=== PATIENT | male | born 1980 | race American Indian/Alaskan Native ===

== ENCOUNTER 2016-10-18 08:39 | Emergency (ER) | payer SELFPAY ==
[2016-10-18 08:53] VITALS: BP 151/97
[2016-10-18 09:33] LABS: Basophils % (Auto) 1.3 % (0.0-1.8); Eosinophils % (Auto) 2.7 % (0.0-4.3); Hematocrit 42.3 % (35.5-45.6); Mean Corpuscular HGB Conc 33 % (32-34); Mean Corpuscular Hemoglobin 27 pg (28-32); Mean Corpuscular Volume 80 fl (84-94); Platelet Count 237 K/mm3 (140-440); Red Blood Count 5.26 M/mm3 (3.65-5.03); Red Cell Distribution Width 14.7 % (13.2-15.2); White Blood Count 4.7 K/mm3 (4.5-11.0)
[2016-10-18 09:50] LABS: Anion Gap 17 mmol/L; BUN/Creatinine Ratio 17.14; Blood Urea Nitrogen 12 mg/dL (9-20); Calcium 9.1 mg/dL (8.4-10.2); Carbon Dioxide 28 mmol/L (22-30); Chloride 97.7 mmol/L (98-107); Glucose 174 mg/dL (75-100); Potassium 3.8 mmol/L (3.6-5.0); Sodium 139 mmol/L (137-145)
--- NOTE | 2016-10-20 19:37 | ED Elopement Review ---
ED Pt Elopement review - Results review Lab results: Laboratory Tests 10/18/16 10/18/16 09:08 09:08 WBC 4.7 RBC 5.26 H Hgb 14.0 Hct 42.3 MCV 80 L MCH 27 L MCHC 33 RDW 14.7 Plt Count 237 Lymph % (Auto) 39.1 H Wilson % (Auto) 10.3 H Eos % (Auto) 2.7 Baso % (Auto) 1.3 Lymph # 1.8 Wilson # 0.5 Eos # 0.1 Baso # 0.1 Seg Neutrophils % 46.6 Seg Neutrophils # 2.2 Sodium 139 Potassium 3.8 Chloride 97.7 L Carbon Dioxide 28 Anion Gap 17 BUN 12 Creatinine 0.7 L Estimated GFR > 60 BUN/Creatinine Ratio 17.14 Glucose 174 H Calcium 9.1 Troponin T < 0.010 - Call Back decision Pt Call Back Decision: No action required
== END 2016-10-18 12:51 | disposition left against medical advice (07) ==
LOC: ED 08:39
DX: R07.9 Chest pain, unspecified (principal); R10.13 Epigastric pain; E11.9 Type 2 diabetes mellitus without complications; I10 Essential (primary) hypertension
CPT/HCPCS: 36415; 80048; 84484; 85025; 93005; 93010

== ENCOUNTER 2016-10-31 00:07 | Emergency (ER) | payer SELFPAY ==
[2016-10-31 06:16] LABS: Anion Gap 17 mmol/L; Blood Urea Nitrogen 20 mg/dL (9-20); Calcium 9.3 mg/dL (8.4-10.2); Carbon Dioxide 29 mmol/L (22-30); Chloride 98.5 mmol/L (98-107); Glucose 134 mg/dL (75-100); Potassium 3.9 mmol/L (3.6-5.0); Sodium 141 mmol/L (137-145)
[2016-10-31 06:17] LABS: Bilirubin,Urine NEG (Negative); Blood,Urine NEG (Negative); Ketones,Urine NEG (Negative); Leukocyte Esterase,Urine NEG (Negative); Mucus,Urine FEW /HPF; Nitrite,Urine NEG (Negative); Protein,Urine <15 mg/dL mg/dL (Negative); RBC,Urine < 1.0 /HPF (0.0-6.0); Urobilinogen,Urine < 2.0 mg/dL (<2.0); WBC,Urine < 1.0 /HPF (0.0-6.0)
--- NOTE | 2016-10-31 07:18 | Emergency Department Report ---
ED General Adult HPI - General Chief complaint: Hyperglycemia Stated complaint: HYPERGLYCEMIA Time Seen by Provider: 10/31/16 07:03 Source: patient Mode of arrival: Ambulatory Limitations: No Limitations - History of Present Illness Initial comments: This is a 36-year-old male a/ox3 well-nourished with nontoxic or ill in appearance but presented to ED complaining of refill for his glipizide. Patient stated he doesn't have a primary care doctor due to insurance. Patient state last dose was last week. Yesterday morning he took his blood sugar which was roughly around 300. Patient stated upon yesterday morning he always had normal blood sugars roughly around 100-120. He stated he ate some carbs with a steak prior to taking his blood sugar which may cause it to elevate. Patient denies any polydipsia, diarrhea, thirst, headache, vital pain, nausea, vomiting , rash, swelling, ulcers, shortness of breath, chest pain, numbness, tingling, diaphoresis. Patient stated he takes glipizide 5 mg twice a day. He stated due to insurance he does not follow-up with a primary care doctor. Denies any allergies. Denies PMH. Complaint: Medication Refill -: Gradual, days(s) (2) Associated Symptoms: denies other symptoms. denies: confusion, chest pain, cough, diaphoresis, fever/chills, headaches, loss of appetite, malaise, nausea/ vomiting, rash, seizure, shortness of breath, syncope, weakness Treatments Prior to Arrival: none - Related Data Previous Rx's Medication Instructions Recorded Last Taken Type Lisinopril [Zestril TAB] 10 mg PO QDAY #30 tablet 02/13/16 Unknown Rx metFORMIN [Glucophage] 500 mg PO BID #60 tablet 02/13/16 Unknown Rx glipiZIDE [Glucotrol] 5 mg PO BID #60 tablet 10/31/16 Unknown Rx Allergies Allergy/AdvReac Type Severity Reaction Status Date / Time No Known Allergies Allergy Unverified 10/18/16 09:00 ED Review of Systems ROS: Stated complaint: HYPERGLYCEMIA Other details as noted in HPI Constitutional: denies: chills, fever Eyes: denies: eye pain, eye discharge, vision change ENT: denies: ear pain, throat pain Respiratory: denies: cough, shortness of breath, wheezing Cardiovascular: denies: chest pain, palpitations Endocrine: no symptoms reported Gastrointestinal: denies: abdominal pain, nausea, diarrhea Genitourinary: denies: urgency, dysuria Musculoskeletal: denies: back pain, joint swelling, arthralgia Skin: denies: rash, lesions Neurological: denies: headache, weakness, paresthesias Psychiatric: denies: anxiety, depression Hematological/Lymphatic: denies: easy bleeding, easy bruising ED Past Medical Hx - Past Medical History Previous Medical History?: Yes Hx Hypertension: Yes Hx Diabetes: Yes - Surgical History Past Surgical History?: No - Social History Smoking Status: Never Smoker Substance Use Type: None - Medications Home Medications: Home Medications Medication Instructions Recorded Confirmed Last Taken Type Lisinopril [Zestril TAB] 10 mg PO QDAY #30 tablet 02/13/16 Unknown Rx metFORMIN [Glucophage] 500 mg PO BID #60 tablet 02/13/16 Unknown Rx glipiZIDE [Glucotrol] 5 mg PO BID #60 tablet 10/31/16 Unknown Rx ED Physical Exam - General Limitations: No Limitations General appearance: alert, in no apparent distress - Head Head exam: Present: atraumatic, normocephalic, normal inspection - Eye Eye exam: Present: normal appearance, PERRL, EOMI. Absent: scleral icterus, conjunctival injection, nystagmus, periorbital swelling, periorbital tenderness Pupils: Present: normal accommodation - ENT ENT exam: Present: normal exam, normal orophraynx, mucous membranes moist, TM's normal bilaterally, normal external ear exam - Neck Neck exam: Present: normal inspection, full ROM. Absent: tenderness, meningismus, lymphadenopathy, thyromegaly - Respiratory Respiratory exam: Present: normal lung sounds bilaterally. Absent: respiratory distress, wheezes, rales, rhonchi, stridor, chest wall tenderness, accessory muscle use, decreased breath sounds, prolonged expiratory - Cardiovascular Cardiovascular Exam: Present: regular rate, normal rhythm, normal heart sounds. Absent: bradycardia, tachycardia, irregular rhythm, systolic murmur, diastolic murmur, rubs, gallop - GI/Abdominal GI/Abdominal exam: Present: soft, normal bowel sounds. Absent: distended, tenderness, guarding, rebound, rigid - Rectal Rectal exam: Present: deferred - Extremities Exam Extremities exam: Present: normal inspection, full ROM, normal capillary refill. Absent: tenderness, pedal edema, joint swelling, calf tenderness - Back Exam Back exam: Present: normal inspection, full ROM. Absent: tenderness, CVA tenderness (R), CVA tenderness (L), muscle spasm, paraspinal tenderness, vertebral tenderness, rash noted - Neurological Exam Neurological exam: Present: alert, oriented X3, CN II-XII intact, normal gait, reflexes normal - Expanded Neurological Exam Expanded Patient oriented to: Present: person, place, time Speech: Present: fluid speech Cranial nerves: EOM's Intact: Normal, Gag Reflex: Normal, Tongue Deviation: Normal, Nystagmus: Normal, Facial Sensation: Normal, Facial Palsy with Forehead Movement: Normal, Facial Palsy without Forehead Movement: Normal Cerebellar function: Finger to Nose: Normal, Heel to Almodovar: Normal, Romberg: Normal Upper motor neuron: Luis Miguel Neglect: Normal, Pronator Drift: Normal, Babinski Sign : Normal, Sensory Extinction: Normal Sensory exam: Upper Extremity Light Touch: Normal, Upper Extremity Pin Prick: Normal, Upper Extremity Temperature: Normal, UE 2 Point Discrimination: Normal, Lower Extremity Light Touch: Normal, Lower Extremity Pin Prick: Normal, Lower Extremity Temperature: Normal, LE 2 Point Discrimination: Normal Motor strength exam: RUE: 5, LUE: 5, RLE: 5, LLE: 5 DTR: bicep (R): 2+, bicep (L): 2+, tricep (R): 2+, tricep (L): 2+, knee (R): 2+ , knee (L): 2+, ankle (R): 2+, ankle (L): 2+ Best Eye Response (Ronaldo): (4) open spontaneously Best Motor Response (Ronaldo): (6) obeys commands Best Verbal Response (Ronaldo): (5) oriented [place] Total: 15 - Psychiatric Psychiatric exam: Present: normal affect, normal mood - Skin Skin exam: Present: warm, dry, intact, normal color. Absent: rash ED Course Vital Signs 10/31/16 00:20 Temperature 98.4 F Pulse Rate 94 H Respiratory 17 Rate Blood Pressure 147/91 O2 Sat by Pulse 98 Oximetry - Reevaluation(s) Reevaluation #1: 10/31/16 07:21 Patient is able to speak in full sentences with no signs of distress. ED Medical Decision Making - Lab Data Result diagrams: 10/31/16 05:30 - Medical Decision Making ED course; this is a 36-year-old male that presents with medication refill 1- patient was examined by myself. Patient showed his medication bottle which clearly states he takes glipizide 5 mg twice a day. I will refill his medication today for 1 month. 2- I stated to patient to have a strict follow-up with a primary care doctor that I will refer to the patient or if patient does not have insurance to follow up with a clinic that takes no insurance. I notified the patient importance of having a primary care doctor for A1c testing. Patient understands the plan of care at the time of discharge. He stated he'll follow up with a primary care doctor within 3-5 days. 3- at time time of discharge, the patient does not seem toxic or ill in appearance. No acute signs of distress noted. Patient agrees to discharge treatment plan of care. No further questions noted by the patient. 4- BMP, UA, and VBG pH obtained. There is no signs of DTA. No ketones present in urine. Normal VBG. Normal BMP with glucose slightly elevated at 135. Critical care attestation.: If time is entered above; I have spent that time in minutes in the direct care of this critically ill patient, excluding procedure time. ED Disposition Clinical Impression: Medication refill, Hyperglycemia Disposition: DC-01 TO HOME OR SELFCARE Is pt being admited?: No Does the pt Need Aspirin: No Condition: Stable Instructions: Diabetic Hyperglycemia (ED), Glipizide (By mouth) Additional Instructions: As discussed with you, it is important that you follow-up with a primary care doctor in 3-5 days and have a continues medical provider follow you. It is critical that your A1C exams are obtained during the medical treatment. If you have symptoms of abdominal pain, nausea, vomiting, dizziness, altered mental status, chest pain, shortness or breathe, fever, chills, numbness, tingling, diarrhea, or other symptoms return to the emergency department as soon as possible, Prescriptions: glipiZIDE [Glucotrol] 5 mg PO BID #60 tablet Referrals: PRIMARY CAREMD [Primary Care Provider] - 3-5 Days JARON BRIDGES MD, PHD [Staff Physician] - 3-5 Days [facility] [Outside] - 3-5 Days [facility] [Outside] - 3-5 Days Forms: Work/School Release Form(ED)
[2016-10-31 08:05] VITALS: BP 140/88
== END 2016-10-31 08:03 | disposition home or self-care (01) ==
LOC: ED 00:07
DX: E11.65 Type 2 diabetes mellitus with hyperglycemia (principal); I10 Essential (primary) hypertension
CPT/HCPCS: 36415; 80048; 81001; 82805; 82962; 99283

== ENCOUNTER 2016-12-10 17:14 | Emergency (ER) | payer SELFPAY ==
--- NOTE | 2016-12-10 17:35 | Emergency Department Report ---
ED General Adult HPI - General Chief complaint: Recheck/Abnormal Lab/Rx Stated complaint: ELEVATED BLOOD SUGAR Time Seen by Provider: 12/10/16 17:21 Source: patient Mode of arrival: Ambulatory Limitations: No Limitations - History of Present Illness Initial comments: PT states he ran out of his medication 2 weeks ago. PT states he was able to get a few pills refilled but he is out again. 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 Pt has empty RX bottle with him. He takes Glipizide bid. PT states he does not take Lisinopril. PT states when he takes it, he feels sob. PT aware he will need to follow up with PCP for [employer] worker management of htn and DM MD Complaint: medication refill -: Gradual, days(s) Severity scale (0 -10): 0 Associated Symptoms: denies: chest pain, nausea/vomiting, shortness of breath, syncope Treatments Prior to Arrival: none - Related Data Previous Rx's Medication Instructions Recorded Last Taken Type Hydrochlorothiazide [HCTZ] 12.5 mg PO QDAY #30 capsule 12/10/16 Unknown Rx glipiZIDE [Glucotrol] 5 mg PO BID #60 tablet 12/10/16 Unknown Rx Allergies Allergy/AdvReac Type Severity Reaction Status Date / Time No Known Allergies Allergy Unverified 10/18/16 09:00 ED Review of Systems ROS: Stated complaint: ELEVATED BLOOD SUGAR Other details as noted in HPI Comment: All other systems reviewed and negative Constitutional: denies: fever, malaise Respiratory: denies: shortness of breath, SOB with exertion, SOB at rest Cardiovascular: denies: chest pain Gastrointestinal: other (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 denies: abdominal pain, nausea, vomiting ED Past Medical Hx - Past Medical History Hx Hypertension: Yes Hx Diabetes: Yes - Surgical History Past Surgical History?: No - Social History Smoking Status: Never Smoker Substance Use Type: None - Medications Home Medications: Home Medications Medication Instructions Recorded Confirmed Last Taken Type Hydrochlorothiazide [HCTZ] 12.5 mg PO QDAY #30 capsule 12/10/16 Unknown Rx glipiZIDE [Glucotrol] 5 mg PO BID #60 tablet 12/10/16 Unknown Rx ED Physical Exam - General Limitations: No Limitations General appearance: alert, in no apparent distress - Head Head exam: Present: atraumatic, normocephalic, normal inspection - Eye Eye exam: Present: normal appearance, PERRL. Absent: conjunctival injection - ENT ENT exam: Present: normal exam, mucous membranes moist, normal external ear exam - Neck Neck exam: Present: normal inspection, full ROM. Absent: tenderness, meningismus, lymphadenopathy - Respiratory Respiratory exam: Present: normal lung sounds bilaterally. Absent: respiratory distress, chest wall tenderness - Cardiovascular Cardiovascular Exam: Present: normal rhythm, tachycardia (mild ) - Extremities Exam Extremities exam: Present: normal inspection, full ROM - Back Exam Back exam: Present: normal inspection, full ROM. Absent: tenderness, CVA tenderness (R), CVA tenderness (L) - Neurological Exam Neurological exam: Present: alert, oriented X3 - Psychiatric Psychiatric exam: Present: normal affect, normal mood - Skin Skin exam: Present: warm, dry, intact, normal color ED Course Vital Signs 12/10/16 12/10/16 17:21 17:38 Temperature 98.7 F Pulse Rate 106 H 98 H Respiratory 20 Rate O2 Sat by Pulse 98 98 Oximetry - Reevaluation(s) Reevaluation #1: 12/10/16 17:36 PT aware of his bg. PT advised to follow an ADA diet. PT aware he will get refill of his medication. PT aware he will need to follow up with PCP for management htn and dm - Pulse Oximetry Interpretation Digit-Finger Initial Pulse Oximetry Readin Actions Taken: none ED Medical Decision Making - Lab Data Lab Results 12/10/16 Range/Units 17:24 POC Glucose 196 H (70-105) - Differential Diagnosis non compliance, hyperglycemia Critical Care Time: No Critical care attestation.: If time is entered above; I have spent that time in minutes in the direct care of this critically ill patient, excluding procedure time. 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 Qualified Code(s ): E11.65 - Type 2 diabetes mellitus with hyperglycemia Disposition: DC-01 TO HOME OR SELFCARE Is pt being admited?: No Does the pt Need Aspirin: No Condition: Stable Instructions: Diabetes Mellitus Type 2 in Adults (ED), Hypertension (ED) Additional Instructions: Follow up with PCP in 3-5 days Have your bp rechecked on follow up Follow an ADA diet return to the ED if you have increased thirst, urination, headache or chest pain Prescriptions: glipiZIDE [Glucotrol] 5 mg PO BID #60 tablet Hydrochlorothiazide [HCTZ] 12.5 mg PO QDAY #30 capsule Referrals: [facility] [Outside] - 3-5 Days ADALID CONTI MD [Staff Physician] - 3-5 Days Time of Disposition: 17:40
== END 2016-12-10 17:55 | disposition home or self-care (01) ==
LOC: ED 17:14
DX: E11.65 Type 2 diabetes mellitus with hyperglycemia (principal)
CPT/HCPCS: 82962; 99282

== ENCOUNTER 2016-12-18 13:11 | Emergency (ER) | payer SELFPAY ==
--- NOTE | 2016-12-18 13:24 | Emergency Department Report ---
Chief Complaint: Chest Pain Stated Complaint: CHEST PAIN Time Seen by Provider: 12/18/16 13:20 - HPI History of Present Illness: PT c/o R sided chest pain that started today. PT states his chest pain feels sharp and like pressure - ROS Review of Systems: -n/v + chest pain - Exam Physical Exam: PT looks well, non toxic RRR gcs 15 MSE screening note: Focused history and physical exam performed. Due to findings the following was ordered: ekg, labs, xr ED Disposition for MSE Condition: Stable
[2016-12-18 13:25] VITALS: BP 151/101
--- NOTE | 2016-12-18 13:58 | XRay Report ---
ROUTINE CHEST, TWO VIEWS: HISTORY: chest pain. The trachea, heart, mediastinal contour, lung ford and bony thorax are unremarkable. IMPRESSION: Unremarkable chest x-ray.
[2016-12-18 14:17] LABS: Basophils % (Auto) 1.1 % (0.0-1.8); Eosinophils % (Auto) 3.4 % (0.0-4.3); Hematocrit 44.1 % (35.5-45.6); Hemoglobin 14.8 gm/dl (11.8-15.2); Mean Corpuscular HGB Conc 33 % (32-34); Mean Corpuscular Hemoglobin 26 pg (28-32); Mean Corpuscular Volume 78 fl (84-94); Platelet Count 242 K/mm3 (140-440); Red Blood Count 5.65 M/mm3 (3.65-5.03); Red Cell Distribution Width 13.5 % (13.2-15.2); White Blood Count 4.1 K/mm3 (4.5-11.0)
[2016-12-18 14:29] LABS: INR 0.94 (0.87-1.13); Partial Thromboplastin Time 26.3 Sec. (24.2-36.6)
[2016-12-18 14:31] LABS: Alanine Aminotransferase 17 units/L (7-56); Albumin/Globulin Ratio 1.1 %; Alkaline Phosphatase 75 units/L (35-129); Anion Gap 16 mmol/L; BUN/Creatinine Ratio 16.66; Blood Urea Nitrogen 10 mg/dL (9-20); Calcium 8.3 mg/dL (8.4-10.2); Carbon Dioxide 27 mmol/L (22-30); Chloride 97.8 mmol/L (98-107); Glucose 195 mg/dL (75-100); Lipase 78 units/L (13-60); Potassium 3.7 mmol/L (3.6-5.0); Sodium 137 mmol/L (137-145); Total Protein 7.7 g/dL (6.3-8.2)
--- NOTE | 2016-12-21 00:40 | ED Elopement Review ---
ED Pt Elopement review - Results review Lab results: Laboratory Tests 12/18/16 12/18/16 12/18/16 13:26 13:26 13:26 WBC 4.1 L RBC 5.65 H Hgb 14.8 Hct 44.1 MCV 78 L MCH 26 L MCHC 33 RDW 13.5 Plt Count 242 Lymph % (Auto) 41.8 H Crock[place] % (Auto) 10.2 H Eos % (Auto) 3.4 Baso % (Auto) 1.1 Lymph # 1.7 [place]ett # 0.4 Eos # 0.1 Baso # 0.0 Seg Neutrophils % 43.5 Seg Neutrophils # 1.8 PT 13.0 INR 0.94 APTT 26.3 Sodium 137 Potassium 3.7 Chloride 97.8 L Carbon Dioxide 27 Anion Gap 16 BUN 10 Creatinine 0.6 L Estimated GFR > 60 BUN/Creatinine Ratio 16.66 Glucose 195 H Calcium 8.3 L Total Bilirubin 0.40 AST 14 ALT 17 Alkaline Phosphatase 75 Troponin T < 0.010 Total Protein 7.7 Albumin 4.0 Albumin/Globulin Ratio 1.1 Lipase 78 H - Call Back decision Pt Call Back Decision: Call pt to return to ED GEORGE (chest pain may require inpatient evaluation. History of diabetes and hypertension)
== END 2016-12-18 19:50 | disposition left against medical advice (07) ==
LOC: ED 13:11
DX: R07.9 Chest pain, unspecified (principal); Z53.21 Procedure and treatment not carried out due to patient leaving prior to being seen by health care provider
CPT/HCPCS: 36415; 71020; 80053; 83690; 84484; 85025; 85610; 85730; 93005; 93010

== ENCOUNTER 2017-01-15 07:04 | Emergency (ER) | payer SELFPAY ==
[2017-01-15 07:54] LABS: Eosinophils % (Auto) 2.9 % (0.0-4.3); Hematocrit 43.9 % (35.5-45.6); Hemoglobin 14.9 gm/dl (11.8-15.2); Mean Corpuscular HGB Conc 34 % (32-34); Mean Corpuscular Hemoglobin 27 pg (28-32); Mean Corpuscular Volume 78 fl (84-94); Platelet Count 230 K/mm3 (140-440); White Blood Count 4.5 K/mm3 (4.5-11.0)
[2017-01-15 08:19] LABS: Anion Gap 15 mmol/L; BUN/Creatinine Ratio 17; Blood Urea Nitrogen 12 mg/dL (9-20); Carbon Dioxide 29 mmol/L (22-30); Chloride 98.7 mmol/L (98-107); Glucose 283 mg/dL (75-100); Sodium 139 mmol/L (137-145)
[2017-01-15] MEDS ORDERED: PEPCID PO ONE (14:48)
[2017-01-15] MEDS ORDERED: ALUM-MAG HYDROX-SIMETH 200-200-20MG/5ML PO ONE (14:48)
--- NOTE | 2017-01-15 14:51 | Emergency Department Report ---
ED Chest Pain HPI - General Chief Complaint: Chest Pain Stated Complaint: CP Time Seen by Provider: 01/15/17 14:26 Source: patient, RN notes reviewed, old records reviewed Mode of arrival: Ambulatory Limitations: No Limitations - History of Present Illness Initial Comments: This is a 36-year-old male. The patient is previously known to this provider. He does not have a primary care doctor. Past medical history of hypertension and diabetes. He presents to the ER with a complaint of chest pain. The chest pain is central. It started at 7:00 in the morning. It did not radiate to the back, arms or neck. There is no vomiting, shortness of breath or diaphoresis. The chest pain lasted for a few seconds. It has since resolved. There is no leg pain, there is no leg swelling, no recent trips greater than 4 hours, no recent hospital admissions, no recent aspirin use, no recent cocaine use. He incidentally request refill on his glipizide. MD Complaint: chest pain -: Gradual Onset: during rest Pain Location: left chest Pain Radiation: none Severity: mild Quality: aching Consistency: now resolved Improves With: nothing Worsens With: nothing re: denies: nausea, vomting, diaphoresis, dyspnea, sense of impending doom Other Symptoms: denies: cough, fever, syncope Treatments Prior to Arrival: none Aspirin use within the Past 7 Days: (0) No - Related Data On Oral Contraceptives: No Previous Rx's Medication Instructions Recorded Last Taken Type Aspirin [Aspirin BABY CHEW TAB] 81 mg PO QDAY #30 tab.chew 01/15/17 Unknown Rx Hydrochlorothiazide [HCTZ] 12.5 mg PO QDAY #30 capsule 01/15/17 Unknown Rx glipiZIDE [Glucotrol] 5 mg PO BID #60 tablet 01/15/17 Unknown Rx Allergies Allergy/AdvReac Type Severity Reaction Status Date / Time No Known Allergies Allergy Unverified 10/18/16 09:00 Heart Score - HEART Score History: Slightly suspicious EKG: Non-specific Age: < 45 Risk factors: 1-2 risk factors Troponin: < normal limit HEART Score: 2 - Critical Actions Critical Actions: 0-3 pts:0.9-1.7%risk of adverse cardiac event.Candidate for discharge ED Review of Systems ROS: Stated complaint: CP Other details as noted in HPI Constitutional: denies: fever Eyes: denies: vision change ENT: denies: epistaxis Respiratory: denies: cough Cardiovascular: chest pain Gastrointestinal: denies: abdominal pain Genitourinary: denies: dysuria Musculoskeletal: denies: back pain Skin: denies: lesions Neurological: denies: headache, weakness ED Past Medical Hx - Past Medical History Previous Medical History?: Yes Hx Hypertension: Yes Hx Diabetes: Yes - Social History Smoking Status: Never Smoker Substance Use Type: None - Medications Home Medications: Home Medications Medication Instructions Recorded Confirmed Last Taken Type Aspirin [Aspirin BABY CHEW TAB] 81 mg PO QDAY #30 tab.chew 01/15/17 Unknown Rx Hydrochlorothiazide [HCTZ] 12.5 mg PO QDAY #30 capsule 01/15/17 Unknown Rx glipiZIDE [Glucotrol] 5 mg PO BID #60 tablet 01/15/17 Unknown Rx ED Physical Exam - General Limitations: No Limitations General appearance: alert, in no apparent distress - Head Head exam: Present: atraumatic, normocephalic - Eye Eye exam: Present: normal appearance, EOMI. Absent: nystagmus - ENT ENT exam: Present: normal exam, normal orophraynx, mucous membranes moist, normal external ear exam - Neck Neck exam: Present: normal inspection, full ROM. Absent: tenderness, meningismus - Respiratory Respiratory exam: Present: normal lung sounds bilaterally. Absent: respiratory distress, wheezes, rales, rhonchi, stridor, chest wall tenderness, accessory muscle use, decreased breath sounds - Cardiovascular Cardiovascular Exam: Present: regular rate, normal rhythm, normal heart sounds. Absent: bradycardia, tachycardia, irregular rhythm, systolic murmur, diastolic murmur, rubs, gallop - GI/Abdominal GI/Abdominal exam: Present: soft, normal bowel sounds. Absent: distended, tenderness, guarding, rebound, rigid, pulsatile mass - Rectal Rectal exam: Present: deferred - Extremities Exam Extremities exam: Present: normal inspection, full ROM, normal capillary refill. Absent: tenderness, pedal edema, joint swelling, calf tenderness - Back Exam Back exam: Present: normal inspection, full ROM. Absent: tenderness, CVA tenderness (R), CVA tenderness (L), muscle spasm, paraspinal tenderness, vertebral tenderness - Neurological Exam Neurological exam: Present: alert, oriented X3, normal gait, other (Extraocular movements intact. Tongue midline. No facial droop. Facial sensation intact to light touch in the V1, V2, V3 distribution bilaterally. 5 and 5 strength in 4 extremities.. Sensation is intact to light touch in 4 extremities.). Absent : motor sensory deficit - Psychiatric Psychiatric exam: Present: normal affect, normal mood - Skin Skin exam: Present: warm, dry, intact, normal color. Absent: rash ED Course Vital Signs 01/15/17 01/15/17 01/15/17 07:23 13:27 14:10 Temperature 98 F 98.4 F Pulse Rate 91 H 70 Respiratory 20 16 16 Rate Blood Pressure 154/103 Blood Pressure 159/100 [Left] O2 Sat by Pulse 98 100 100 Oximetry 01/15/17 01/15/17 15:00 15:27 Temperature 98.7 F Pulse Rate 84 86 Respiratory 18 Rate Blood Pressure Blood Pressure 156/96 [Left] O2 Sat by Pulse 99 Oximetry - Reevaluation(s) Reevaluation #1: 01/15/17 15:41 Chest pain started at 7:00 in the morning. Troponins are negative 2. Troponin is drawn over 8 hour timeframe. INRMALA score - Nirmala Score Age > 65: (0) No Aspirin use within the Past 7 Days: (0) No 3 or more CAD Risk Factors: (0) No 2 or more Angina events in past 24 hrs: (0) No Known CAD with more than 50% Stenosis: (0) No Elevated Cardiac Markers: (0) No ST Deviation Greater than 0.5mm: (0) No NIRMALA Score: 0 ED Medical Decision Making - Lab Data Result diagrams: 01/15/17 07:40 01/15/17 07:40 Vital Signs 01/15/17 07:23 Temperature 98 F Pulse Rate 91 H Respiratory 20 Rate Blood Pressure 154/103 O2 Sat by Pulse 98 Oximetry Lab Results 01/15/17 01/15/17 01/15/17 Range/Units 07:40 07:40 10:27 WBC 4.5 (4.5-11.0) K/mm3 RBC 5.60 H (3.65-5.03) M/mm3 Hgb 14.9 (11.8-15.2) gm/dl Hct 43.9 (35.5-45.6) % MCV 78 L (84-94) fl MCH 27 L (28-32) pg MCHC 34 (32-34) % RDW 14.0 (13.2-15.2) % Plt Count 230 (140-440) K/mm3 Lymph % (Auto) 41.7 H (13.4-35.0) % Wilbarger % (Auto) 8.0 H (0.0-7.3) % Eos % (Auto) 2.9 (0.0-4.3) % Baso % (Auto) 2.0 H (0.0-1.8) % Lymph # 1.9 (1.2-5.4) K/mm3 Wilbarger # 0.4 (0.0-0.8) K/mm3 Eos # 0.1 (0.0-0.4) K/mm3 Baso # 0.1 (0.0-0.1) K/mm3 Seg Neutrophils % 45.4 (40.0-70.0) % Seg Neutrophils # 2.1 (1.8-7.7) K/mm3 Sodium 139 (137-145) mmol/L Potassium 4.0 (3.6-5.0) mmol/L Chloride 98.7 (98-107) mmol/L Carbon Dioxide 29 (22-30) mmol/L Anion Gap 15 mmol/L BUN 12 (9-20) mg/dL Creatinine 0.7 L (0.8-1.5) mg/dL Estimated GFR > 60 ml/min BUN/Creatinine Ratio 17 % Glucose 283 H (75-100) mg/dL Calcium 9.0 (8.4-10.2) mg/dL Troponin T < 0.010 < 0.010 (0.00-0.029) ng/mL - EKG Data -: EKG Interpreted by Ut EKG shows normal: sinus rhythm - EKG Data 01/15/17 15:37 EKG #1 demonstrates sinus, 89 bpm, normal axis, not morphologically consistent with STEMI, Q waves noted in the inferior leads. Appears grossly unchanged from prior EKG 12/18/2016. EKG #2 demonstrates sinus, 73 bpm, normal intervals, normal axis, not consistent with STEMI, persistent Q waves noted in inferior leads, appears unchanged when compared to prior. - Radiology Data Radiology results: image reviewed interpreted by me: X-ray of the chest is negative for acute disease - Medical Decision Making Differential diagnosis: GERD, gastritis, acute coronary syndrome, pneumonia Assessment and plan: 36-year-old male with atypical chest pain, troponin negative 2, EKG abnormal but unchanged 2, appears unchanged when compared to prior EKG, Q waves were present in lead 3 a prior EKG, and they are present today. Low risk by NIRMALA score, low risk by heart score, low risk by well's criteria, no pulmonary embolus or DVT risk factors, perc negative. Patient at low risk for major adverse cardiac events. He is pain-free at this time, and appears quite comfortable. Patient's medications were refilled, he will be started on low dose aspirin, and he will be referred to local outpatient cardiology to follow up for outpatient ACS risk stratification. Critical care attestation.: If time is entered above; I have spent that time in minutes in the direct care of this critically ill patient, excluding procedure time. ED Disposition Clinical Impression: Chest pain Disposition: DC-01 TO HOME OR SELFCARE Is pt being admited?: No Does the pt Need Aspirin: No Condition: Stable Instructions: Chest Pain (ED) Additional Instructions: Take the medications as directed. Follow up with a manager of human resources or primary care doctor within the next 3-5 days to schedule/syringe outpatient cardiac stress test/cardiac risk stratification evaluation. It is very important to follow-up as directed with any of the listed outpatient specialist. Alternatively, contact your private insurance company to arrange outpatient follow-up. Return to the ER right away with new pain, worsened pain, migration of pain, fevers, chills, lethargy, confusion, intractable vomiting, inability to tolerate liquid feeds, change in mental status, worsening pain. Prescriptions: Aspirin [Aspirin BABY CHEW TAB] 81 mg PO QDAY #30 tab.chew glipiZIDE [Glucotrol] 5 mg PO BID #60 tablet Hydrochlorothiazide [HCTZ] 12.5 mg PO QDAY #30 capsule Referrals: PRIMARY CARE, [Primary Care Provider] - 3-5 Days [facility] [Provider Group] - 3-5 Days [facility] [Provider Group] - 3-5 Days
[2017-01-15 15:41] VITALS: BP 156/96
--- NOTE | 2017-01-15 15:53 | XRay Report ---
ROUTINE CHEST, TWO VIEWS: History: Chest pain. PA and lateral views demonstrate the heart and mediastinal contour to be of normal size and shape. The lungs are clear and fully expanded and the soft tissues and bony structures are normal. IMPRESSION: Normal study.
== END 2017-01-15 15:41 | disposition home or self-care (01) ==
LOC: ED 07:04
DX: R07.9 Chest pain, unspecified (principal); I10 Essential (primary) hypertension; E11.9 Type 2 diabetes mellitus without complications; Z79.82 Long term (current) use of aspirin
CPT/HCPCS: 36415; 71020; 80048; 84484; 85025; 93005; 93010

== ENCOUNTER 2017-03-08 14:20 | Emergency (ER) | payer SELFPAY ==
[2017-03-08 14:30] VITALS: BP 176/120
== END 2017-03-08 17:00 | disposition left against medical advice (07) ==
LOC: ED 14:20
DX: E11.65 Type 2 diabetes mellitus with hyperglycemia (principal); I10 Essential (primary) hypertension; Z53.21 Procedure and treatment not carried out due to patient leaving prior to being seen by health care provider
CPT/HCPCS: 82962

== ENCOUNTER 2019-04-06 11:23 | Emergency (ER) | payer SELFPAY ==
--- NOTE | 2019-04-06 12:07 | Event Note ---
ED Screening Note Date of service: 04/06/19 Time: 12:04 ED Screening Note: c/o CP x thid morning denies SOB, hx of LA/CVA/DVT/PE States BG 400s at home This initial assessment/diagnostic orders/clinical plan/treatment(s) is/are subject to change based on patients health status, clinical progression and re- assessment by fellow clinical providers in the ED. Further treatment and workup at subsequent clinical providers discretion. Patient/guardian urged not to elope from the ED as their condition may be serious if not clinically assessed and managed. Initial orders include: labs CXR EKG
[2019-04-06 12:47] LABS: Basophils # (Auto) 0.1 K/mm3 (0.0-0.1); Basophils % (Auto) 1.1 % (0.0-1.8); Eosinophils # (Auto) 0.1 K/mm3 (0.0-0.4); Eosinophils % (Auto) 2.4 % (0.0-4.3); Hematocrit 43.9 % (35.5-45.6); Lymphocytes # (Auto) 1.4 K/mm3 (1.2-5.4); Mean Corpuscular HGB Conc 34 % (32-34); Mean Corpuscular Volume 80 fl (84-94); Monocytes # (Auto) 0.3 K/mm3 (0.0-0.8); Monocytes % (Auto) 7.3 % (0.0-7.3); Platelet Count 250 K/mm3 (140-440); Red Blood Count 5.48 M/mm3 (3.65-5.03); Red Cell Distribution Width 13.8 % (13.2-15.2)
[2019-04-06 12:56] LABS: BUN/Creatinine Ratio 13; Blood Urea Nitrogen 10 mg/dL (9-20); Calcium 9.2 mg/dL (8.4-10.2); Hemolysis Index 4
--- NOTE | 2019-04-06 13:17 | XRay Report ---
CHEST 1 VIEW 12:45 PM INDICATION / CLINICAL INFORMATION: Chest pain. COMPARISON: 01/15/2017. FINDINGS: SUPPORT DEVICES: None. HEART / MEDIASTINUM: The heart size and pulmonary vasculature are normal. The aorta is normal in mirlande mary. LUNGS / PLEURA: No significant pulmonary or pleural abnormality. No pneumothorax. ADDITIONAL FINDINGS: No significant additional findings. IMPRESSION: No acute abnormality or significant change. Signer Name: Elkin Gavin MD Signed: 04/06/2019 1:13 PM Workstation Name: [id number]
[2019-04-06] MEDS ORDERED: SODIUM CHLORIDE 0.9% 1000 ML 1,000 ML ONE (13:37)
[2019-04-06] MEDS ORDERED: SODIUM CHLORIDE 0.9% 1000 ML 1,000 ML IV ONE ×2 (13:50→14:15)
[2019-04-06] MEDS ORDERED: INSULIN REGULAR, HUMAN 100 UNITS/1 ML IV ONE (14:15)
--- NOTE | 2019-04-06 14:33 | Emergency Department Report ---
ED Dizziness HPI - General Chief Complaint: Chest Pain Stated Complaint: CHEST PAIN/HYPERGLYCEMIA Time Seen by Provider: 04/06/19 12:04 Source: patient Mode of arrival: Ambulatory Limitations: No Limitations - History of Present Illness Initial Comments: 38 year old male with pmhx of DM, HTN presents to ED c/o elevated BS. Patient states that this morning he felt a "little" lightheaded, and when he checked his blood sugar it was elevated above 300. He states at the time he mild sharp pain underneath his right breast but this has since resolved. He admits that he has been out of his glipizide since yesterday and he just needs a refill on his medication. He states he does not currently have a PCP. He denies any associated ZAMBRANO, vision changes, focal neurological deficits, nausea, vomiting, abdominal pain or UTI symptoms. Denies any fever or chills. Denies any history of DKA. Denies any history of CAD. Denies hx of DVT/PE and he has no risk factors for DVT/PE. MD Complaint: lightheadedness, other (Chest pain, now resolved) -: Gradual (Today) - Related Data Previous Rx's Medication Instructions Recorded Last Taken Type Aspirin [Aspirin BABY CHEW TAB] 81 mg PO QDAY #30 tab.chew 01/15/17 Unknown Rx amLODIPine 10 mg PO DAILY #30 tab 04/06/19 Unknown Rx glipiZIDE [Glucotrol] 5 mg PO BID #60 tablet 04/06/19 Unknown Rx Allergies Allergy/AdvReac Type Severity Reaction Status Date / Time No Known Allergies Allergy Unverified 10/18/16 09:00 ED Review of Systems ROS: Stated complaint: CHEST PAIN/HYPERGLYCEMIA Other details as noted in HPI Comment: All other systems reviewed and negative Respiratory: denies: cough, orthopnea, shortness of breath, SOB with exertion, SOB at rest, stridor Cardiovascular: chest pain (resolved). denies: palpitations, dyspnea on exertion, edema, syncope, paroxysmal nocturnal dyspnea Gastrointestinal: denies: abdominal pain, nausea, vomiting, diarrhea, constipation, hematemesis, hematochezia Genitourinary: denies: urgency, dysuria, frequency, hematuria, discharge, testicular pain, testicular mass, other Musculoskeletal: denies: arthralgia, myalgia Neurological: other (dizzy). denies: headache, weakness, numbness, paresthesias, confusion, abnormal gait, vertigo ED Past Medical Hx - Past Medical History Previous Medical History?: Yes Hx Hypertension: Yes Hx Diabetes: Yes - Social History Smoking Status: Never Smoker Substance Use Type: None - Medications Home Medications: Home Medications Medication Instructions Recorded Confirmed Last Taken Type Aspirin [Aspirin BABY CHEW TAB] 81 mg PO QDAY #30 tab.chew 01/15/17 Unknown Rx amLODIPine 10 mg PO DAILY #30 tab 04/06/19 Unknown Rx glipiZIDE [Glucotrol] 5 mg PO BID #60 tablet 04/06/19 Unknown Rx ED Physical Exam - General Limitations: No Limitations General appearance: alert, in no apparent distress - Head Head exam: Present: atraumatic, normocephalic - Eye Eye exam: Present: normal appearance, PERRL, EOMI Pupils: Present: normal accommodation - ENT ENT exam: Present: normal exam, mucous membranes moist - Neck Neck exam: Present: normal inspection. Absent: tenderness, meningismus, full ROM - Respiratory Respiratory exam: Present: normal lung sounds bilaterally. Absent: respiratory distress - Cardiovascular Cardiovascular Exam: Present: regular rate, normal rhythm - GI/Abdominal GI/Abdominal exam: Present: soft. Absent: distended - Extremities Exam Extremities exam: Present: normal inspection, full ROM - Neurological Exam Neurological exam: Present: alert, oriented X3, CN II-XII intact, normal gait. Absent: motor sensory deficit - Psychiatric Psychiatric exam: Present: normal affect, normal mood - Skin Skin exam: Present: intact ED Course Vital Signs 04/06/19 04/06/19 12:04 15:31 Temperature 98.8 F 98.1 F Pulse Rate 100 H 94 H Respiratory 20 16 Rate Blood Pressure 162/99 Blood Pressure 136/95 [Right] O2 Sat by Pulse 98 96 Oximetry ED Medical Decision Making - Lab Data Result diagrams: 04/06/19 12:21 04/06/19 12:21 - EKG Data Rate: tachycardia (102) - EKG Data Interpretation: no acute changes, normal EKG - Radiology Data Radiology results: report reviewed - Medical Decision Making Pt with pmhx of HTN and DM presents to ED c/o elevated BS. Pt reported that he felt "a little" dizzy this morning and when he checked his BS it was elevated above 300. He admits that he has not been out of his glipizide since yesterday and requesting a refill. 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 labs reviewed, his BS has improved after 2L of NS and Insulin. labs otherwise unremarkable including normal trop. EKG is no acute ischemic changes or significant dysrhythmias. His chest x-ray is normal. No signs of DKA. Pt reports feeling better and is ready for discharge. Patient is awake, alert, oriented 3, no acute distress, neurologically intact. No admission or emergent consultation required at this time. Patient will be given a refill on his medication, he will be given a referral to outpatient primary care doctor. Patient is stable and appropriate for discharge at this time but he understands that if he worsens he needs to return to the ER. Critical care attestation.: If time is entered above; I have spent that time in minutes in the direct care of this critically ill patient, excluding procedure time. ED Disposition Clinical Impression: Uncontrolled diabetes mellitus Disposition: DC-01 TO HOME OR SELFCARE Is pt being admited?: No Does the pt Need Aspirin: No Condition: Stable Instructions: Diabetes Mellitus Type 2 in Adults (ED) Prescriptions: amLODIPine 10 mg PO DAILY #30 tab glipiZIDE [Glucotrol] 5 mg PO BID #60 tablet Referrals: KLEBER BALLARD MD [Staff Physician] - 3-5 Days Time of Disposition: 15:43
[2019-04-06 15:32] VITALS: BP 136/95
== END 2019-04-06 16:12 | disposition home or self-care (01) ==
LOC: ED 11:23
DX: E11.65 Type 2 diabetes mellitus with hyperglycemia (principal); E11.9 Type 2 diabetes mellitus without complications
CPT/HCPCS: 36415; 71045; 80048; 82962; 84484; 85025; 93005; 93010; 96361; 96374; 99284; J7030; J1815